=== PATIENT | female | born 1965 | race Caucasian/White ===

== ENCOUNTER 2019-11-06 10:43 | Emergency (ER) | payer BC ==
[~2019-11-06] VITALS: Ht 152.4 cm; Wt 45.5 kg
[2019-11-06] MEDS ORDERED: NS 1,000 ML IV ONE (11:45)
[2019-11-06 12:09] LABS: BASO # 0.1 10^3/uL (0.0-0.2); BASO % 1.2 % (0.0-1.0); EOS % 0.7 % (0.0-3.0); HEMOGLOBIN 14.8 g/dl (12.0-15.5); LYMPH # 0.4 10^3/uL (1.5-5.0); LYMPH % 7.2 % (24.0-44.0); MEAN CORPUSCULAR HEMOGLOBIN 31.9 pg (27.0-33.0); MEAN CORPUSCULAR HGB CONC 33.6 g/dl (32.0-36.5); MEAN CORPUSCULAR VOLUME 94.8 fl (80.0-96.0); MONO # 0.4 10^3/uL (0.0-0.8); MONO % 6.7 % (0.0-5.0); NEUTROPHILS % 83.9 % (36.0-66.0); PLATELET COUNT, AUTOMATED 180 10^3/uL (150-450); RED BLOOD COUNT 4.64 10^6/uL (4.00-5.40); WHITE BLOOD COUNT 5.9 10^3/uL (4.0-10.0)
[2019-11-06 13:09] LABS: BLOOD UREA NITROGEN 20 MG/DL (7-18); CALCIUM LEVEL 8.3 MG/DL (8.5-10.1); CARBON DIOXIDE LEVEL 22 MEQ/L (21-32); CHLORIDE LEVEL 107 MEQ/L (98-107); CREATININE FOR GFR 0.93 MG/DL (0.55-1.30); ETHYL ALCOHOL (ETHANOL) < 0.003 % (0.000-0.010); GLOMERULAR FILTRATION RATE > 60.0 (>51); GLUCOSE, FASTING 102 MG/DL (70-100); MAGNESIUM LEVEL 1.8 MG/DL (1.8-2.4); POTASSIUM SERUM 4.1 MEQ/L (3.5-5.1); SODIUM LEVEL 140 MEQ/L (136-145)
[2019-11-06] MEDS ORDERED: NS 500 ML IV ONE (14:00)
[2019-11-06 14:39] VITALS: BP 123/85
--- NOTE | 2019-11-06 15:10 | REP ---
INGUINAL ULTRASOUND: Real-time sonographic evaluation of the inguinal region is performed with special attention paid to the right inguinal region where there is tenderness and swelling. Left inguinal region is scanned for comparison. There are multiple lymph nodes seen in the right inguinal soft tissues. The largest measures 1.4 x 0.8 x 0.9 cm. There are a couple of normal sized lymph nodes in the left inguinal region. I do not see a significant inguinal hernia. There is no evidence of soft tissue fluid collection. IMPRESSION: Multiple lymph nodes in the right inguinal soft tissues, largest measures 1.4 x 0.8 x 0.9 cm. Electronically Signed by Pierre Francisco MD 11/06/2019 07:36 P
--- NOTE | 2019-11-06 16:34 | ECGEPIP ---
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
--- NOTE | 2019-11-08 14:29 | ED PDOC ---
Post-Departure Follow-Up certified letter sent to pt re formal reading of pelvic us - needs fu. no pcp l isted. obtain pcp and fax. if no pcp refer to [facility] and fax Deedee Mckeon MD Nov 08, 2019 14:29
== END 2019-11-06 15:17 | disposition home or self-care (01) ==
LOC: M ED 10:43 → EDBD 10:43 → M ED 15:17
DX: R55 Syncope and collapse (principal); E86.0 Dehydration; T67.9XXA Effect of heat and light, unspecified, initial encounter; R59.0 Localized enlarged lymph nodes; Y92.89 Other specified places as the place of occurrence of the external cause
CPT/HCPCS: 76857; 80048; 83735; 84443; 84484; 85025; 93005; 93041; 94760; 96360; 96361; 99285; G0480